=== PATIENT | male | born 1970 | race Caucasian/White ===

== ENCOUNTER 2017-02-24 08:00 | Outpatient (RCR) | payer OTHER | END 2017-03-12 | LOC: OT 08:00 | PROVIDERS: ATTEND Surgery Surgery of the Hand | DX: M24.542 Contracture, left hand (principal); M79.642 Pain in left hand; M25.642 Stiffness of left hand, not elsewhere classified; R53.1 Weakness | CPT/HCPCS: 97110 ×2; 97165; L3913 ==